=== PATIENT | female | born 1950 | race Caucasian/White ===

== ENCOUNTER 2023-07-25 13:18 | Outpatient (RCR) | payer MEDICARE, BC | END 2023-07-26 | LOC: M ST 13:18 | PROVIDERS: ATTEND Otolaryngology | DX: R49.0 Dysphonia (principal) ==

== ENCOUNTER 2023-08-24 13:23 | Outpatient (RCR) | payer MEDICARE, BC | END 2023-08-26 | LOC: M ST 13:23 | PROVIDERS: ATTEND Otolaryngology | DX: R49.0 Dysphonia (principal) ==

== ENCOUNTER 2023-09-07 13:54 | Outpatient (RCR) | payer MEDICARE, BC | END 2023-09-25 | LOC: M ST 13:54 | PROVIDERS: ATTEND Otolaryngology | DX: R49.0 Dysphonia (principal) ==